=== PATIENT | male | born 1980 | race Hispanic/Latino ===

== ENCOUNTER 2019-04-05 09:55 | Emergency (ER) | payer OTHER, SELFPAY ==
[2019-04-05 10:03] VITALS: BP 132/95; PULSE 76; RESP 16; TEMP 36.9; O2SAT 98
--- NOTE | 2019-04-05 10:08 | DI.RAD.S_ITS ---
PROCEDURE: XR HAND LT MIN 3V INDICATIONS: injury TECHNIQUE: 30 views of the hand(s) acquired. COMPARISON: None. FINDINGS: Bones: Comminuted fractures of the sydnie of the third and fourth distal phalanges noted. Soft tissues: No suspicious soft tissue calcifications. IMPRESSION: Third and fourth distal phalange fractures. Dictated by: Hailee Babcock MD, PhD on 04/05/2019 at 11:19 Approved by: Hailee Babcock MD, PhD on 04/05/2019 at 11:20
--- NOTE | 2019-04-05 11:29 | ED.UPPEXIN ---
HPI - Extremity Injury (Upper) <TOMMY Marr - Last Filed: 04/05/19 14:11> General Chief Complaint: Extremity Injury, Upper Stated Complaint: Cut open hand Time Seen by Provider: 04/05/19 11:00 Source: patient Mode of arrival: ambulatory Limitations: no limitations History of Present Illness HPI narrative: 39-year-old healthy male presents emergency department today complaining of left 2nd and 3rd finger laceration [place]. He describes a 4/10 pain to his 3rd finger that is worse with movement better with rest. He states bleeding was controlled after the injury with a pressure dressing. His last Tdap was 3 months ago. Patient denies fever, chest pain, shortness of breath, abdominal pain, nausea, vomiting, or syncope. MD complaint: injury to: left Related Data Previous Rx's Medication Instructions Recorded cephalexin 500 mg PO QID 7 Days #28 cap 04/05/19 Allergies Allergy/AdvReac Type Severity Reaction Status Date / Time No Known Drug Allergies Allergy Verified 04/05/19 10:06 Review of Systems <TOMMY Marr - Last Filed: 04/05/19 14:11> Review of Systems REVIEW OF SYSTEMS: GENERAL: Denies fever or chills. HENT: No head trauma. EYES: No double vision or vision loss. CARDIOVASCULAR: No chest pain or syncope. RESPIRATORY: No shortness of breath or cough. GASTROINTESTINAL: No nausea, vomiting, diarrhea, or constipation. GENITOURINARY: No flank pain or dysuria. MUSCULOSKELETAL: Complains of left finger pain, see HPI. INTEGUMENTARY: Complains of wounds to left 2nd and 3rd fingers, see HPI. NEURO: No numbness, tingling. PSYCH: No behavior or mood changes. PFSH <TOMMY Marr - Last Filed: 04/05/19 14:11> Medical History No significant medical problems (Acute) Social History Smoking Status: Never smoker Social History Smoking Status: Never smoker Exam <TOMMY Marr - Last Filed: 04/05/19 14:11> Initial Vital Signs Initial Vital Signs: Vital Signs Temperature 98.5 F 04/05/19 10:03 Pulse Rate 76 04/05/19 10:03 Respiratory Rate 16 04/05/19 10:03 Blood Pressure 132/95 H 04/05/19 10:03 Pulse Oximetry 98 04/05/19 10:03 PHYSICAL EXAMINATION: GENERAL: Well groomed, alert, and cooperative. Answers questions promptly and appropriately. Vital signs noted. HENT: Normocephalic, atraumatic. EYES: Symmetrical, sclera white, no periorbital swelling. CARDIOVASCULAR: S1 and S2 sounds normal. Regular rate and rhythm, no murmurs, clicks, or bruits. No pedal edema. RESPIRATORY: Normal respiratory rate, trachea midline, airway patent. No stridor, nasal flaring or accessory muscle use. Lungs are clear in all vazquez. MUSCULOSKELETAL: Tenderness to distal aspect of left 3rd and 4th finger on palpation, ecchymosis present. Limited range of motion of dip joints due to swelling and pain. Full range of motion of PIP and finger joints. Nails remain intact. Normal gait and coordination. Equal tone and mass bilaterally. EXTREMITIES: CMS intact. No pedal edema. SKIN: Warm, dry, soft, appropriate color for ethnicity. 2cm abrasion to the ulnar aspect of the 3rd finger, 0.5cm puncture wound to the distal tip of the 4th finger. Wounds were irrigated and soaked, no sutures indicated, bleeding controlled with dressing. No erythema or purulent discharge noted. NEURO: Alert and Oriented X 3. No sensory deficits. PSYCH: Appropriate affect and mood. <Yina Pham DO - Last Filed: 04/06/19 07:05> Initial Vital Signs Initial Vital Signs: Vital Signs Temperature 98.5 F 04/05/19 10:03 Pulse Rate 76 04/05/19 10:03 Respiratory Rate 16 04/05/19 10:03 Blood Pressure 132/95 H 04/05/19 10:03 Pulse Oximetry 98 04/05/19 10:03 Course <TOMMY Marr - Last Filed: 04/05/19 14:11> Course Narrative: Patient's wound was extensively irrigated and soaked, due to the fact that he has tuff fractures in both fingers as well as open wounds, patient was treated with a PO course of antibiotics. Wound was dressed with bacitracin and splints were applied. Explained to patient that he should follow up with an orthopedic. Orders Ordered: Discontinued Medications Bacitracin (Bacitracin) 1 applic TOP NOW ONE Stop: 04/05/19 11:58 Vital Signs - 8 hr 04/05/19 10:03 04/05/19 12:23 Temperature 98.5 F Pulse Rate 76 75 Respiratory Rate 16 16 Blood Pressure 132/95 H Blood Pressure [Right Arm] 128/89 Pulse Oximetry 98 99 <Yina Pham DO - Last Filed: 04/06/19 07:05> Orders Ordered: Discontinued Medications Bacitracin (Bacitracin) 1 applic TOP NOW ONE Stop: 04/05/19 11:58 Vital Signs - 8 hr 04/05/19 10:03 04/05/19 12:23 Temperature 98.5 F Pulse Rate 76 75 Respiratory Rate 16 16 Blood Pressure 132/95 H Blood Pressure [Right Arm] 128/89 Pulse Oximetry 98 99 MDM - Extremity Injury (Upper) <TOMMY Marr - Last Filed: 04/05/19 14:11> Medical Records Attestation: I reviewed the patient's medical records. Lab Data Attestation: I reviewed the patient's lab results. Imaging Data Lt Finger XR: Radiologist's impression: [address] [address] XRay Report Signed Patient: Raj Jose#: [id number] : 1980Acct:[id number] Age/Sex: 39 / MDate of Service: 04/05/19 Loc: ED Accession Number: [id number] Procedure: XR hand LT min 3V Ordering Provider: Yina Pham D.O. PROCEDURE: XR HAND LT MIN 3V INDICATIONS: injury TECHNIQUE: 30 views of the hand(s) acquired. COMPARISON: None. FINDINGS: Bones: Comminuted fractures of the sydnie of the third and fourth distal phalanges noted. Soft tissues: No suspicious soft tissue calcifications. IMPRESSION: Third and fourth distal phalange fractures. Dictated by: Hailee Babcock MD, PhD on 04/05/2019 at 11:19 Approved by: Hailee Babcock MD, PhD on 04/05/2019 at 11:20 MDM Narrative Medical decision making narrative: The tuff fractures with associated wounds due to crush injury as indicated on exam and x-ray. Wounds were extensively irrigated, prophylactic antibiotics were given due to open fractures (p.o. Indications appropriate they were tuff fractures). Patient was referred to Ortho for monitoring of appropriate healing. Wound did not indicate need for suture closure. Strict return precautions given and follow-up instructions discussed. Discharge Plan Departure Patient Disposition: Home Clinical Impression: Fracture of finger Qualifiers: Encounter type: initial encounter Finger: middle finger Fracture type: open Phalanx: distal Fracture alignment: nondisplaced Laterality: left Qualified Code(s): S62.663B - Nondisplaced fracture of distal phalanx of left middle finger, initial encounter for open fracture Discharge Date/Time: 04/05/19 12:48 Interventions: ED Discharge Assessment Last Done: 04/05/19 12:47 Instructions: DI for Finger Fracture Activity Restrictions/Additional Instructions: Thank you for entrusting me with your care today. As discussed, you're 3rd and 4th finger are fractured. Please follow up with orthopedic listed below to ensure proper healing. Take antibiotics as directed to prevent infection. Leave the dressing in place for the next 24 hours, after that you may remove the dressing and wash your hands gently but do not immerse your hands in water. Return to the emergency department if you develop pussy drainage, increased redness, severe swelling, fevers, chills, chest pain, shortness of breath, or syncope. Prescriptions: New cephalexin 500 mg capsule 500 mg PO QID 7 Days Qty: 28 RF: 0 Referrals: Sharon Fuentes PA-C [Physician] - (Left 3rd and 4th distal phalange fracture) <Yina Pham DO - Last Filed: 04/06/19 07:05> Cosign ED Attending Romulo Attestation: I was immediately available in the department for consultation. Documentation has been reviewed. I agree with assessment and plan.
[2019-04-05 12:23] VITALS: BP 128/89; PULSE 75; RESP 16; O2SAT 99
--- NOTE | 2019-04-05 12:46 | PC.NURSE ---
gauze, metal finger splint, satinderan
== END 2019-04-05 12:48 | disposition home or self-care (01) ==
PROVIDERS: Emergency Provider Nurse Practitioner
DX: S62.615B Displaced fracture of proximal phalanx of left ring finger, initial encounter for open fracture (principal); S62.613B Displaced fracture of proximal phalanx of left middle finger, initial encounter for open fracture; W23.0XXA Caught, crushed, jammed, or pinched between moving objects, initial encounter; Y99.0 Civilian activity done for income or pay
CPT/HCPCS: 73130; 99283